=== PATIENT | male | born 1960 | race Native Hawaiian/Other Pacific Islander ===

== ENCOUNTER 2020-09-24 10:20 | Outpatient (CLI) | payer OTHER | END 2020-09-24 22:08 | disposition home or self-care (01) | LOC: RAD 10:20 | PROVIDERS: ATTEND Nurse Practitioner Family | DX: M25.561 Pain in right knee (principal) ==

== ENCOUNTER 2021-03-05 10:44 | Outpatient (CLI) | payer OTHER | END 2021-03-05 21:59 | disposition home or self-care (01) | LOC: US 10:44 | PROVIDERS: ATTEND Nurse Practitioner Family | DX: R60.0 Localized edema (principal) ==

== ENCOUNTER 2022-07-07 15:28 | Outpatient (CLI) | payer OTHER | END 2022-07-07 19:24 | disposition home or self-care (01) | LOC: US 15:28 | PROVIDERS: ATTEND Registered Nurse | DX: M79.605 Pain in left leg (principal); M25.562 Pain in left knee ==

== ENCOUNTER 2022-07-11 03:59 | Emergency (ER) | payer OTHER ==
[~2022-07-11] VITALS: Ht 182.9 cm; Wt 90.7 kg
[2022-07-11 04:20] LABS: PLATELET COUNT 401 K/uL (142-355)
[2022-07-11 04:26] LABS: POTASSIUM 4.7 mmol/L (3.6-5.2)
[2022-07-11 04:44] LABS: PARTIAL THROMBOPLASTIN TIME 31.6 SECONDS (24.5-33.6)
[2022-07-11 06:35] VITALS: BP 141/74; TEMP 97.9
== END 2022-07-11 06:40 | disposition home or self-care (01) ==
LOC: ED 03:59
PROVIDERS: Emergency Medicine
DX: I89.0 Lymphedema, not elsewhere classified (principal); J18.9 Pneumonia, unspecified organism; D89.2 Hypergammaglobulinemia, unspecified
CPT/HCPCS: 36415; 80053; 82550; 83880; 84484; 85027; 85610; 85730; 93005; 96374; 96375; 99284; J2270; J2405

== ENCOUNTER 2022-07-18 10:46 | Inpatient (IN) | payer OTHER ==
[~2022-07-18] VITALS: Ht 182.9 cm; Wt 92.6 kg
[2022-07-18 10:49] VITALS: BP 130/96; TEMP 97.2
[2022-07-18 11:41] LABS: PLATELET COUNT 636 K/uL (142-355)
[2022-07-18 16:44] VITALS: BP 108/71
[2022-07-18 18:18] VITALS: BP 128/79; TEMP 98.1; Ht 182.9 cm; Wt 92.6 kg
[2022-07-18] MEDS ORDERED: LEVOFLOXACIN500 MG PO (18:19)
[2022-07-18] MEDS ORDERED: CLINDAMYCIN HY300 MG PO (18:22)
[2022-07-18] MEDS ORDERED: VITAMIN D50000 UNIT PO (18:23)
[2022-07-18] MEDS ORDERED: TRAMADOL HYDROC50 MG PO (18:25)
[2022-07-18 18:49] VITALS: BP 128/79; TEMP 98.1
[2022-07-18 19:56] VITALS: BP 109/65; TEMP 98.4
[2022-07-19] VITALS: BP 137/75; TEMP 97.6
[2022-07-19 04:00] VITALS: BP 138/69; TEMP 98.1
[2022-07-19 06:03] LABS: POTASSIUM 4.2 mmol/L (3.6-5.2)
[2022-07-19 06:04] LABS: PLATELET COUNT 555 K/uL (142-355)
[2022-07-19 08:00] VITALS: BP 125/74; TEMP 98
[2022-07-19 12:00] VITALS: BP 121/71; TEMP 98.2
[2022-07-19] MEDS ORDERED: ALLO300T23 PO (12:07)
[2022-07-19 16:00] VITALS: BP 121/68; TEMP 98.2
[2022-07-19 20:00] VITALS: BP 151/84; TEMP 97.9
[2022-07-20] VITALS: BP 132/61; TEMP 98.7
[2022-07-20 04:00] VITALS: BP 137/74; TEMP 98.2
[2022-07-20 05:51] LABS: POTASSIUM 4.2 mmol/L (3.6-5.2)
[2022-07-20 05:56] LABS: PLATELET COUNT 518 K/uL (142-355)
[2022-07-20 08:00] VITALS: BP 137/73; TEMP 98.2
[2022-07-20 12:00] VITALS: BP 126/74; TEMP 97.9
[2022-07-20 15:46] VITALS: BP 148/74; TEMP 98.5
[2022-07-20 20:00] VITALS: BP 152/72; TEMP 97.6
[2022-07-21] VITALS: BP 149/74; TEMP 98.5
[2022-07-21 04:00] VITALS: BP 152/73; TEMP 97.7
[2022-07-21 06:33] LABS: PLATELET COUNT 575 K/uL (142-355)
[2022-07-21 06:56] LABS: POTASSIUM 4.3 mmol/L (3.6-5.2)
[2022-07-21 08:00] VITALS: BP 140/88; TEMP 99.1
[2022-07-21 12:00] VITALS: BP 115/71; TEMP 98.1
[2022-07-21 16:00] VITALS: BP 148/87; TEMP 98.3
[2022-07-21 19:58] VITALS: BP 155/80; TEMP 98.6
[2022-07-22] VITALS: BP 133/74; TEMP 99
[2022-07-22 03:57] VITALS: BP 148/84; TEMP 98.7
[2022-07-22 06:46] LABS: PLATELET COUNT 601 K/uL (142-355)
[2022-07-22 07:12] LABS: POTASSIUM 4.1 mmol/L (3.6-5.2)
[2022-07-22 08:00] VITALS: BP 140/82; TEMP 98.5
[2022-07-22] MEDS ORDERED: ACET-206 PO (11:10)
[2022-07-22] MEDS ORDERED: DULCOLAX 10MG SUPP PR (11:10)
[2022-07-22] MEDS ORDERED: LORA10TA3 PO (11:10)
[2022-07-22] MEDS ORDERED: MIRALAX 17GM PAK PO (11:11)
[2022-07-22] MEDS ORDERED: TAMS0.4C PO (11:11)
[2022-07-22 12:11] VITALS: BP 119/74; BP 155/80; TEMP 97.7; TEMP 98.6
== END 2022-07-22 14:00 | DRG 690 ==
LOC: ED 10:46 → MED/SURG 16:50
PROVIDERS: ADMIT Emergency Medicine; ATTEND Internal Medicine
DX: N39.0 Urinary tract infection, site not specified (principal); N17.8 Other acute kidney failure; R53.1 Weakness; R26.89 Other abnormalities of gait and mobility; N39.498 Other specified urinary incontinence; R60.0 Localized edema; K59.09 Other constipation; E11.65 Type 2 diabetes mellitus with hyperglycemia; N40.0 Benign prostatic hyperplasia without lower urinary tract symptoms; D72.828 Other elevated white blood cell count; M54.89 Other dorsalgia; L98.8 Other specified disorders of the skin and subcutaneous tissue
CPT/HCPCS: 36415; 80048; 80053; 81000; 83036; 83880; 84550; 85027; 85379; 87088; 87635; 96361; 96365; 96367; 96372; 96375; 99284; J0744; J1335; J1650; J1885; J2270; J2405; Q9963; U0003

== ENCOUNTER 2022-07-22 15:10 | Inpatient (IN) | payer OTHER ==
[~2022-07-22 15:10] MED LIST: ACET-206 PO; ALLO300T23 PO; CLINDAMYCIN HY300 MG PO; DULCOLAX 10MG SUPP PR; LEVOFLOXACIN500 MG PO; LORA10TA3 PO; MIRALAX 17GM PAK PO; TAMS0.4C PO; TRAMADOL HYDROC50 MG PO; VITAMIN D50000 UNIT PO
== END 2022-07-26 10:42 | disposition still patient (30) ==
LOC: PAVC 15:10
PROVIDERS: ADMIT Family Medicine; ATTEND Family Medicine
DX: N39.0 Urinary tract infection, site not specified (principal); M62.81 Muscle weakness (generalized); R26.2 Difficulty in walking, not elsewhere classified; R27.8 Other lack of coordination; R27.9 Unspecified lack of coordination; Z74.1 Need for assistance with personal care; M16.0 Bilateral primary osteoarthritis of hip
CPT/HCPCS: 87081

== ENCOUNTER 2022-08-26 10:45 | Inpatient (IN) | payer OTHER | END 2022-09-25 12:21 | disposition still patient (30) | LOC: PAVC 10:45 | PROVIDERS: ADMIT Family Medicine; ATTEND Family Medicine | DX: N39.0 Urinary tract infection, site not specified (principal); M62.81 Muscle weakness (generalized); R26.2 Difficulty in walking, not elsewhere classified; R27.8 Other lack of coordination; R27.9 Unspecified lack of coordination; Z74.1 Need for assistance with personal care; M16.0 Bilateral primary osteoarthritis of hip ==

== ENCOUNTER 2022-08-28 09:45 | Outpatient (CLI) | payer OTHER | END 2022-08-28 21:56 | disposition home or self-care (01) | LOC: MRI 09:45 | PROVIDERS: ATTEND Family Medicine | DX: R53.1 Weakness (principal) ==

== ENCOUNTER 2022-10-26 14:40 | Inpatient (IN) | payer OTHER | END 2022-11-26 09:30 | disposition still patient (30) | LOC: PAVC 14:40 | PROVIDERS: ADMIT Family Medicine; ATTEND Family Medicine ==

== ENCOUNTER 2022-11-26 12:42 | Inpatient (IN) | payer OTHER | END 2022-12-24 15:23 | disposition still patient (30) | LOC: PAVC 12:42 | PROVIDERS: ADMIT Family Medicine; ATTEND Family Medicine ==

== ENCOUNTER 2022-12-24 07:58 | Outpatient (CLI) | payer OTHER ==
[2022-12-24 08:28] LABS: PLATELET COUNT 187 K/uL (142-355)
[2022-12-24 08:41] LABS: POTASSIUM 4.3 mmol/L (3.6-5.2)
== END 2022-12-24 19:11 | disposition home or self-care (01) ==
LOC: LAB 07:58
PROVIDERS: ATTEND Family Medicine
DX: E11.9 Type 2 diabetes mellitus without complications (principal); M16.0 Bilateral primary osteoarthritis of hip
CPT/HCPCS: 80053; 80061; 85027

== ENCOUNTER 2022-12-24 15:30 | Inpatient (IN) | payer OTHER | END 2023-01-24 12:24 | disposition still patient (30) | LOC: PAVC 15:30 | PROVIDERS: ADMIT Family Medicine; ATTEND Family Medicine ==

== ENCOUNTER 2023-01-19 14:16 | Emergency (ER) | payer OTHER ==
[~2023-01-19] VITALS: Ht 185.4 cm; Wt 78.9 kg
[2023-01-19 14:59] LABS: PLATELET COUNT 185 K/uL (142-355)
[2023-01-19 15:08] LABS: POTASSIUM 3.9 mmol/L (3.6-5.2)
[2023-01-19 19:30] VITALS: BP 145/92; TEMP 97.7
== END 2023-01-19 19:30 | disposition short-term general hospital (02) ==
LOC: ED 14:16
PROVIDERS: Emergency Medicine Emergency Medical Services
DX: K85.10 Biliary acute pancreatitis without necrosis or infection (principal)
CPT/HCPCS: 80053; 81002; 82150; 83690; 85027; 96361; 96374; 96375; 96376; 99285; J1170; J1885; J2405; Q9963

== ENCOUNTER 2023-01-24 12:42 | Inpatient (IN) | payer OTHER | END 2023-02-23 16:45 | disposition still patient (30) | LOC: PAVC 12:42 | PROVIDERS: ADMIT Family Medicine; ATTEND Family Medicine ==

== ENCOUNTER 2023-02-23 16:52 | Inpatient (IN) | payer OTHER | END 2023-03-26 12:39 | disposition still patient (30) | LOC: PAVC 16:52 | PROVIDERS: ADMIT Family Medicine; ATTEND Family Medicine ==

== ENCOUNTER 2023-03-26 12:45 | Inpatient (IN) | payer OTHER | END 2023-04-25 17:45 | disposition still patient (30) | LOC: PAVC 12:45 | PROVIDERS: ADMIT Family Medicine; ATTEND Family Medicine ==

== ENCOUNTER 2023-06-30 06:03 | Outpatient (CLI) | payer OTHER ==
[2023-06-30 14:28] LABS: PLATELET COUNT 176 K/uL (142-355)
[2023-06-30 15:03] LABS: POTASSIUM 4.1 mmol/L (3.6-5.2)
== END 2023-06-30 21:59 | disposition home or self-care (01) ==
LOC: LAB 06:03
PROVIDERS: ATTEND Family Medicine
DX: E11.9 Type 2 diabetes mellitus without complications (principal); M16.0 Bilateral primary osteoarthritis of hip
CPT/HCPCS: 36415; 80053; 80061; 84153; 85027